=== PATIENT | female | born 1980 | race Caucasian/White ===

== ENCOUNTER → 2016-05-01 | Outpatient (CLI) | payer OTHER ==
--- NOTE | 2016-05-04 11:03 | MM ---
Reason for exam: screening (asymptomatic). Last mammogram was performed 5 years and 5 months ago. History: Patient had first child at age 29. Family history of breast cancer in mother at age 50. Took hormonal contraceptives for 2 years beginning at age 29. Physical Findings: A clinical breast exam by your physician is recommended on an annual basis and results should be correlated with mammographic findings. MG 3D Screening Mammo W/Cad Bilateral CC and MLO view(s) were taken. Prior study comparison: December 03, 2010, bilateral digital screening mammo w/CAD. There are scattered fibroglandular densities. There is no discrete abnormality. ASSESSMENT: Negative, BI-RAD 1 RECOMMENDATION: Routine screening mammogram of both breasts in 1 year.
== END | disposition home or self-care (01) ==
LOC: RADMAMWWP 16:53
PROVIDERS: ATTEND Family Medicine
DX: Z12.31 Encounter for screening mammogram for malignant neoplasm of breast (principal); Z80.3 Family history of malignant neoplasm of breast
CPT/HCPCS: 77063; G0202

== ENCOUNTER → 2017-06-02 | Outpatient (CLI) | payer OTHER ==
--- NOTE | 2017-06-03 14:23 | MM ---
Reason for exam: screening (asymptomatic). Last mammogram was performed 1 year and 1 month ago. History: Patient had first child at age 29. Family history of breast cancer in mother at age 50. Took hormonal contraceptives for 2 years beginning at age 29. Physical Findings: A clinical breast exam by your physician is recommended on an annual basis and results should be correlated with mammographic findings. MG Screening Mammo w CAD Bilateral CC, MLO, and XCCL view(s) were taken. Prior study comparison: May 01, 2016, bilateral MG 3d screening mammo w/cad. December 03, 2010, bilateral digital screening mammo w/CAD. There are scattered fibroglandular densities. No significant changes when compared with prior studies. ASSESSMENT: Benign, BI-RAD 2 RECOMMENDATION: Routine screening mammogram of both breasts in 1 year.
== END | disposition home or self-care (01) ==
LOC: RADMAMWWP 08:58
PROVIDERS: ATTEND Family Medicine
DX: Z12.31 Encounter for screening mammogram for malignant neoplasm of breast (principal)
CPT/HCPCS: 77067

== ENCOUNTER 2018-05-26 23:00 | Emergency (ER) | payer OTHER ==
[2018-05-26 23:06] VITALS: BP 170/91; PULSE 77; RESP 18; TEMP 98.8
[2018-05-26] MEDS ORDERED: KETOROLAC 30 MG/ML 1 ML VIAL IM STA (23:40)
[2018-05-26] MEDS ORDERED: DIAZEPAM 5 MG TAB PO STA (23:41)
--- NOTE | 2018-05-26 23:58 | ED ---
Back Pain HPI - General Source: patient Limitations: no limitations <Earnestine Contreras - Last Filed: 05/27/18 14:51> <Sharon Francisco - Last Filed: 05/27/18 21:51> - General Chief Complaint: Back Pain/Injury Stated Complaint: Strained Muscles Lft Side Time Seen by Provider: 05/26/18 23:21 - History of Present Illness Initial Comments: 38-year-old female patient presented to the emergency department today for evaluation of left-sided back spasms. Patient states that she has had symptoms for the last 2-3 days. Patient states symptoms did worsen today. 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 She states that the symptoms worsen when she twists her torso or attempts to lie down. She denies any radiation of the pain into her abdomen. She denies any hematuria or dysuria, but states she is urinating more frequently. She denies any fever or chills. States that she has had occasional back pain in the past. She denies any radiation of the pain down her legs. Denies any numbness or tingling to her lower trauma is. Denies any saddle anesthesia or loss of bowel or bladder control. Patient denies any recent rash, shortness breath, chest pain, diarrhea, constipation, back pain, dizziness, weakness, headache, visual changes, or any other complaints. (Earnestine Contreras) - Related Data Home Medications Medication Instructions Recorded Confirmed Hydrochlorothiazide [Hydrodiuril] 25 mg PO DAILY 05/26/18 05/26/18 Sertraline [Zoloft] 50 mg PO DAILY 05/26/18 05/26/18 metFORMIN HCL ER [Glucophage Xr] 500 mg PO AC-BID 05/26/18 05/26/18 Previous Rx's Medication Instructions Recorded Cyclobenzaprine [Flexeril] 10 mg PO TID #15 tab 05/27/18 Ibuprofen [Motrin] 600 mg PO Q8HR PRN #30 tab 05/27/18 Allergies Allergy/AdvReac Type Severity Reaction Status Date / Time codeine AdvReac Nausea & Verified 05/26/18 23:41 Vomiting & Diarrhea Review of Systems ROS Other: All systems not noted in ROS Statement are negative. <Earnestine Contreras - Last Filed: 05/27/18 14:51> ROS Other: All systems not noted in ROS Statement are negative. <Sharon Francisco P - Last Filed: 05/27/18 21:51> ROS Statement: Those systems with pertinent positive or pertinent negative responses have been documented in the HPI. Past Medical History Past Medical History: No Reported History History of Any Multi-Drug Resistant Organisms: None Reported Past Surgical History: Cholecystectomy Past Psychological History: No Psychological Hx Reported Smoking Status: Never smoker Past Alcohol Use History: None Reported Past Drug Use History: None Reported <Earnestine Contreras M - Last Filed: 05/27/18 14:51> General Exam Limitations: no limitations General appearance: alert, in no apparent distress, other (Physical well- developed, well-nourished adult female patient in no acute distress. Vital signs upon presentation are temperature 98.8F. Pulse 77, respirations 18, blood pressure 170/91, pulse ox 100% on room air.) Eye exam: Present: normal appearance, PERRL, EOMI. Absent: scleral icterus, conjunctival injection, periorbital swelling Respiratory exam: Present: normal lung sounds bilaterally. Absent: respiratory distress, wheezes, rales, rhonchi, stridor Cardiovascular Exam: Present: regular rate, normal rhythm, normal heart sounds. Absent: systolic murmur, diastolic murmur, rubs, gallop, clicks GI/Abdominal exam: Present: soft, normal bowel sounds. Absent: distended, te nderness, guarding, rebound, rigid Extremities exam: Present: normal inspection, full ROM, normal capillary refill, other (Skin to the lower extremities is pink, warm, dry. Cap refills less than 3 seconds. Pedal pulses are 2+ and equal bilaterally.). Absent: tenderness, pedal edema, joint swelling, calf tenderness Back exam: Present: normal inspection, other (Patient has left low back tenderness). Absent: vertebral tenderness Neurological exam: Present: alert, oriented X3, CN II-XII intact Psychiatric exam: Present: normal affect, normal mood Skin exam: Present: warm, dry, intact, normal color. Absent: rash <Earnestine Contreras M - Last Filed: 05/27/18 14:51> Course Vital Signs 05/26/18 23:04 Temperature 98.8 F Pulse Rate 77 Respiratory 18 Rate Blood Pressure 170/91 O2 Sat by Pulse 100 Oximetry Medical Decision Making <Earnestine Contreras - Last Filed: 05/27/18 14:51> <Sharon Francisco - Last Filed: 05/27/18 21:51> - Medical Decision Making 38-year-old female patient presents to the emergency department today for evaluation of left-sided back spasms. Physical examination did reveal some left low back tenderness. She is neurovascularly intact. Strength in the lower extremities is 5/5. No concerning symptoms or cauda equina. Given the location of pain over the kidney or did want to perform urinalysis. Patient refused this test and asked to be discharged. She'll be given muscle relaxer for home. She is instructed take anti-inflammatory medications as directed. She is in structed follow up with her primary care physician for recheck in 1-2 days. Return parameters were discussed in detail. She verbalizes understanding and agrees with this plan. (Earnestine Contreras) I was available for consultation in the emergency department. The history and physical exam were done by the midlevel provider. I was consulted for this patient's care. I reviewed the case with the midlevel provider and based on their presentation of the patient, I agree with the assessment, medical decision making and plan of care as documented. (Sharon Francisco) Disposition Is patient prescribed a controlled substance at d/c from ED?: No Time of Disposition: 00:28 <Earnestine Contreras - Last Filed: 05/27/18 14:51> <Sharon Francisco - Last Filed: 05/27/18 21:51> Clinical Impression: Muscle spasm of back Disposition: HOME SELF-CARE Condition: Good Instructions (If sedation given, give patient instructions): Muscle Spasm (ED) Additional Instructions: Take medications as directed. Apply warm moist heat to the painful areas. Perform gentle range of motion exercises. Follow-up through primary care physician for recheck in 1-2 days. Return to the emergency department immediately for any new, worsening, or concerning symptoms. Prescriptions: Cyclobenzaprine [Flexeril] 10 mg PO TID #15 tab Ibuprofen [Motrin] 600 mg PO Q8HR PRN #30 tab PRN Reason: Pain Referrals: Nadia Blackburn III, MD [Primary Care Provider] - 1-2 days
== END 2018-05-27 00:50 | disposition home or self-care (01) ==
LOC: EC 23:00
DX: M62.830 Muscle spasm of back (principal); Z53.29 Procedure and treatment not carried out because of patient's decision for other reasons; Z79.84 Long term (current) use of oral hypoglycemic drugs; Z79.899 Other long term (current) drug therapy; Z88.5 Allergy status to narcotic agent
CPT/HCPCS: 99282

== ENCOUNTER → 2018-10-14 | Outpatient (CLI) | payer OTHER ==
--- NOTE | 2018-10-14 15:43 | US ---
EXAMINATION TYPE: US thyroid st tissue head/neck DATE OF EXAM: 10/14/2018 COMPARISON: NONE CLINICAL HISTORY: 38-year-old female R13.10 Dysphagia. TECHNIQUE: Multiple sonographic images of the thyroid gland are obtained. FINDINGS: GLAND SIZE: Right Lobe: 4.9 x 1.3 x 1.6 cm Overall Parenchyma: heterogenous Left Lobe: 5.0 x 1.5 x 1.7 cm Overall Parenchyma: heterogeneous Isthmus Thickness: 0.4 cm NODULES RIGHT: # of nodules measured on right: 0 LEFT: # of nodules measured on left: 0 ISTHMUS: # of nodules measured in the isthmus: 0 Bilateral neck scanned, no evidence of lymphadenopathy. Gland is heterogeneous bilaterally. IMPRESSION: Heterogeneous glandular parenchyma. Borderline thyromegaly, possible goiter. No discrete nodules.
--- NOTE | 2018-10-19 09:06 | MM ---
Reason for exam: screening (asymptomatic). Last mammogram was performed 1 year and 4 months ago. History: Patient had first child at age 29. Family history of breast cancer in mother at age 50. Took hormonal contraceptives for 2 years beginning at age 29. Physical Findings: A clinical breast exam by your physician is recommended on an annual basis and results should be correlated with mammographic findings. MG Screening Mammo w CAD Bilateral CC and MLO view(s) were taken. Prior study comparison: June 02, 2017, bilateral MG screening mammo w CAD. May 01, 2016, bilateral MG 3d screening mammo w/cad. The breast tissue is almost entirely fat. No significant changes when compared with prior studies. ASSESSMENT: Negative, BI-RAD 1 RECOMMENDATION: Routine screening mammogram of both breasts in 1 year.
== END | disposition home or self-care (01) ==
LOC: RADMAMWWP 13:58
PROVIDERS: ATTEND Family Medicine
DX: Z12.31 Encounter for screening mammogram for malignant neoplasm of breast (principal); R93.89 Abnormal findings on diagnostic imaging of other specified body structures; R13.10 Dysphagia, unspecified
CPT/HCPCS: 76536; 77067

== ENCOUNTER → 2019-04-05 | Outpatient (CLI) | payer OTHER ==
--- NOTE | 2019-04-06 03:55 | US ---
EXAMINATION TYPE: US pelvis complete transvag DATE OF EXAM: 04/05/2019 COMPARISON: US 2014 CLINICAL HISTORY: 39-year-old female N94.6 dysmenorrhea, N94.10 dyspareunia,R10.30 Lower abd pain. In termittent pelvic pain, abnormal cycles, 4, para 2, miscarriage 2. TECHNIQUE: Transabdominal sonographic images of the pelvis were acquired. Transvaginal sonographic images were medically necessary to better assess the following anatomy: ovaries and endometrium. Date of LMP: 4 weeks ago FINDINGS: EXAM MEASUREMENTS: Uterus: 9.0 x 5.4 x 4.8 cm Endometrial Stripe: 1.4 cm Right Ovary: 3.3 x 2.0 x 2.3 cm Left Ovary: not seen 1. Uterus: anteverted, mildly heterogeneous myometrium, multiple nabothian cysts 2. Endometrium: borderline thickened at 1.4cm 3. Right Ovary: multiple follicles with largest measuring 1.1cm 4. Left Ovary: not seen 5. Bilateral Adnexa: wnl 6. Posterior cul-de-sac: wnl IMPRESSION: 1. Small cervical nabothian cysts. 2. Endometrial stripe thickened at 1.4 cm. This should correspond to the secretory phase of the menst rual cycle. 3. Normal follicular changes in the right ovary. 4. The left ovary could not be visualized.
== END | disposition home or self-care (01) ==
LOC: RADUSWWP 16:18
PROVIDERS: ATTEND Nurse Practitioner Family
DX: N88.8 Other specified noninflammatory disorders of cervix uteri (principal)
CPT/HCPCS: 76830; 76856

== ENCOUNTER → 2019-10-17 | Outpatient (CLI) | payer OTHER ==
--- NOTE | 2019-10-18 10:11 | MM ---
Reason for exam: screening (asymptomatic). Last mammogram was performed 1 year ago. History: Patient had first child at age 29. Family history of breast cancer in mother at age 50. Taking hormonal contraceptives for 2 years beginning at age 29. Physical Findings: A clinical breast exam by your physician is recommended on an annual basis and results should be correlated with mammographic findings. MG Screening Mammo w CAD Bilateral CC and MLO view(s) were taken. Prior study comparison: October 14, 2018, bilateral MG screening mammo w CAD. June 02, 2017, bilateral MG screening mammo w CAD. There are scattered fibroglandular densities. There is no discrete abnormality. No significant changes when compared with prior studies. ASSESSMENT: Negative, BI-RAD 1 RECOMMENDATION: Routine screening mammogram of both breasts in 1 year.
== END | disposition home or self-care (01) ==
LOC: RADMAMWWP 09:52
PROVIDERS: ATTEND Family Medicine
DX: Z12.31 Encounter for screening mammogram for malignant neoplasm of breast (principal)
CPT/HCPCS: 77067

== ENCOUNTER 2020-08-06 06:56 | Day surgery (SDC) | payer OTHER ==
[2020-08-01 10:45] VITALS: BMI 38.2
[~2020-08-06 06:56] MED LIST: LACTATED RINGERS 1,000 ML IV SCH
[2020-08-06] MEDS ORDERED: LIDOCAINE 1% (10MG/ML) FOR IV START INTRADERMA ONE (07:20)
[2020-08-06 07:31] VITALS: RESP 16; TEMP 97.2
[2020-08-06 07:32] LABS: Glucose,Whole Blood 133 mg/dL (75-99)
[2020-08-06] MEDS ORDERED: PROPOFOL 10 MG/ML 20 ML VIAL IV ONE (07:40)
--- NOTE | 2020-08-06 08:04 | P.PCN ---
Date of Procedure: 08/06/20 Description of Procedure: BRIEF HISTORY: Patient is a 40-year-old female presenting for outpatient colonoscopy for evaluation of iron deficiency anemia. Previously the patient had reported menorrhagia but after IUD placement this is resolved. She continues to have an iron deficiency anemia. She denies any signs or symptoms of GI bleeding. No family history of colon cancer. PROCEDURE PERFORMED: Colonoscopy. PREOPERATIVE DIAGNOSIS: Iron deficiency anemia, no prior colonoscopy. ESTIMATED BLOOD LOSS: Minimal. IV sedation per Anesthesia. PROCEDURE: After informed consent was obtained, the patient, was brought into the endoscopy unit. IV sedation was administered by Anesthesia under continuous monitoring. Digital rectal examination was normal. Initially the Olympus CF-190 flexible video colonoscope was then inserted in the rectum, gradually advanced into the cecum without any difficulty. Careful examination was performed as the scope was gradually being withdrawn. Ileocecal valve and the appendiceal orifice were visualized and appeared normal. Prep was excellent. Mucosa of the cecum, ascending colon, transverse colon, descending colon, sigmoid colon, and rectum appeared normal. Retroflexion was performed in the rectum and no lesions were seen, With low-grade internal hemorrhoids seen. The patient tolerated the procedure well. IMPRESSION: Normal-appearing colon from rectum to cecum and normal-appearing terminal ileum. RECOMMENDATIONS: Findings of this examination were discussed with the patient and her family. Okay to resume diet. Okay to resume medications. Continue medical management. Follow-up with primary care physician as previously scheduled.
[2020-08-06 08:15] VITALS: BP 108/73; PULSE 73
== END 2020-08-06 08:58 | disposition home or self-care (01) ==
LOC: ORWHC2ENDO 06:56
PROVIDERS: ATTEND Internal Medicine
DX: K64.8 Other hemorrhoids (principal); D50.9 Iron deficiency anemia, unspecified; Z90.49 Acquired absence of other specified parts of digestive tract; E78.5 Hyperlipidemia, unspecified; E11.9 Type 2 diabetes mellitus without complications; F32.9 Major depressive disorder, single episode, unspecified; F41.9 Anxiety disorder, unspecified; K21.9 Gastro-esophageal reflux disease without esophagitis; Z79.84 Long term (current) use of oral hypoglycemic drugs; Z79.1 Long term (current) use of non-steroidal anti-inflammatories (NSAID); Z79.899 Other long term (current) drug therapy; Z88.5 Allergy status to narcotic agent
CPT/HCPCS: 81025; 45378; J2704

== ENCOUNTER → 2021-10-22 | Outpatient (CLI) | payer OTHER ==
--- NOTE | 2021-10-24 11:27 | MM ---
Reason for Exam: Screening (asymptomatic). Last mammogram was performed 2 year(s) and 0 month(s) ago. Patient History: Menarche at age 11. First Full-Term at age 29. Late child-bearing (after 30). Currently using Hormonal Contraceptives, beginning at age 29 for 2 years. Mother had breast cancer, age 50. Risk Values: Mirna 5 year model risk: 1.4%. NCI Lifetime model risk: 18.8%. Prior Study Comparison: 06/02/2017 Bilateral Screening Mammogram, [facility]. 10/14/2018 Bilateral Screening Mammogram, [facility]. 10/17/2019 Bilateral Screening Mammogram, [facility]. Tissue Density: There are scattered fibroglandular densities. Findings: Analyzed By CAD. No discrete abnormality. Overall Assessment: Negative, BI-RAD 1 Management: Screening Mammogram of both breasts in 1 year. A clinical breast exam by your physician is recommended on an annual basis and results should be correlated with mammographic findings. Electronically signed and approved by: Dash Canchola M.D. Radiologist
== END | disposition home or self-care (01) ==
LOC: RADMAMWWP 14:55
PROVIDERS: ATTEND Family Medicine
DX: Z12.31 Encounter for screening mammogram for malignant neoplasm of breast (principal); Z80.3 Family history of malignant neoplasm of breast
CPT/HCPCS: 77067

== ENCOUNTER → 2022-12-25 | Outpatient (CLI) | payer OTHER ==
--- NOTE | 2022-12-25 08:48 | MM ---
Reason for Exam: Screening (asymptomatic). Last mammogram was performed 1 year(s) and 2 month(s) ago. Patient History: Menarche at age 11. First Full-Term at age 29. Late child-bearing (after 30). Currently using Hormonal Contraceptives, beginning at age 29 for 2 years. Mother had breast cancer, age 50. Risk Values: Mirna 5 year model risk: 1.6%. NCI Lifetime model risk: 18.6%. Prior Study Comparison: 10/14/2018 Bilateral Screening Mammogram, [facility]. 10/17/2019 Bilateral Screening Mammogram, [facility]. 10/22/2021 Bilateral MG screening mammo w CAD, [facility]. Tissue Density: There are scattered fibroglandular densities. Findings: Analyzed By CAD. There is no suspicious group of microcalcifications or new suspicious mass in either breast. Overall Assessment: Negative, BI-RAD 1 Management: Screening Mammogram of both breasts in 1 year. A clinical breast exam by your physician is recommended on an annual basis and results should be correlated with mammographic findings. Note on Mirna scores and lifetime risk: 1. A Mirna score greater than 3% is considered moderate risk. If this is the case, consider specialist referral to assess eligibility for a risk reducing agent. If overall lifetime risk for the development of breast cancer is 20% or higher, the patient may qualify for future screening with alternating mammogram and breast MRI. Electronically signed and approved by: Morgan Alba D.O.
== END | disposition home or self-care (01) ==
LOC: RADMAMWWP 08:17
PROVIDERS: ATTEND Family Medicine
DX: Z12.31 Encounter for screening mammogram for malignant neoplasm of breast (principal); R92.323 Mammographic fibroglandular density, bilateral breasts; Z80.3 Family history of malignant neoplasm of breast
CPT/HCPCS: 77067

== ENCOUNTER → 2023-12-27 | Outpatient (CLI) | payer BC, OTHER ==
--- NOTE | 2024-01-03 08:53 | MM ---
Reason for Exam: Screening (asymptomatic). Last screening mammogram was performed 12 month(s) ago. Patient History: Menarche at age 11. First Full-Term at age 29. Late child-bearing (after 30). Currently using Hormonal Contraceptives, beginning at age 29 for 2 years. Mother had breast cancer, age 50. Risk Values: Mirna 5 year model risk: 1.7%. NCI Lifetime model risk: 18.5%. Prior Study Comparison: 10/17/2019 Bilateral Screening Mammogram, [facility]. 10/22/2021 Bilateral MG screening mammo w CAD, [facility]. 12/25/2022 Bilateral MG screening mammo w CAD, [facility]. Tissue Density: The breasts are almost entirely fatty. Findings: Analyzed By CAD. Right breast: There is no suspicious group of microcalcifications or new suspicious mass. Left breast: There is no suspicious group of microcalcifications or new suspicious mass. Overall Assessment: Negative, BI-RAD 1 Management: Screening Mammogram of both breasts in [address] [facility] will attempt to contact patient to return for supplemental views and ultrasound if indicated. Patient should continue monthly self-breast exams. A clinical breast exam by your physician is recommended on an annual basis. This exam should not preclude additional follow-up of suspicious palpable abnormalities. Note on Mirna scores and lifetime risk: 1. A Mirna score greater than 3% is considered moderate risk. If this is the case, consider specialist referral to assess eligibility for a risk reducing agent. 2. If overall lifetime risk for the development of breast cancer is 20% or higher, the patient may qualify for future screening with alternating mammogram and breast MRI. [facility], , 01/03/2024 8:50 AM. Electronically signed and approved by: Pk Hatch DO
== END | disposition home or self-care (01) ==
LOC: RADMAMWWP 15:24
PROVIDERS: ATTEND Family Medicine
DX: Z12.31 Encounter for screening mammogram for malignant neoplasm of breast (principal); Z80.3 Family history of malignant neoplasm of breast
CPT/HCPCS: 77067

== ENCOUNTER 2024-01-15 09:05 | Emergency (ER) | payer OTHER, BC ==
[2024-01-15 09:22] VITALS: TEMP 99
--- NOTE | 2024-01-15 09:46 | ED ---
Lower Extremity Injury HPI - General Chief Complaint: Extremity Injury, Lower Stated Complaint: L Leg Injury Time Seen by Provider: 01/15/24 09:22 Source: patient, RN notes reviewed Mode of arrival: ambulatory Limitations: no limitations - History of Present Illness Initial Comments: This is a 43-year-old female who presents to the emergency department for left leg pain and swelling. 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 She has since had increased pain and swelling. She went to urgent care this morning and was advised to come here for an ultrasound to rule out a DVT. Pain is controlled with [id number] medication. Denies any history of DVTs, chest pain, or shortness of breath. - Related Data Home Medications Medication Instructions Recorded Confirmed Sertraline [Zoloft] 50 mg PO DAILY 05/26/18 08/01/20 hydroCHLOROthiazide [Hydrodiuril] 25 mg PO DAILY 05/26/18 08/01/20 metFORMIN HCL ER [Glucophage Xr] 1,000 mg PO HS 05/26/18 08/01/20 Ascorbic Acid [Vitamin C] 500 mg PO DAILY 08/01/20 08/01/20 Atorvastatin [Lipitor] 20 mg PO DAILY 08/01/20 08/01/20 Ferrous Sulfate [Feosol] 325 mg PO DAILY 08/01/20 08/01/20 Multivitamins, Thera [Multivitamin 1 tab PO DAILY 08/01/20 08/01/20 (formulary)] Omeprazole 20 mg PO DAILY 08/01/20 08/01/20 Previous Rx's Medication Instructions Recorded Cyclobenzaprine [Flexeril] 10 mg PO TID #15 tab 05/27/18 Ibuprofen [Motrin] 600 mg PO Q8HR PRN #30 tab 05/27/18 Allergies Allergy/AdvReac Type Severity Reaction Status Date / Time codeine AdvReac Nausea & Verified 01/15/24 09:21 Vomiting & Diarrhea Review of Systems ROS Statement: Those systems with pertinent positive or pertinent negative responses have been documented in the HPI. ROS Other: All systems not noted in ROS Statement are negative. Past Medical History Past Medical History: Diabetes Mellitus, GERD/Reflux, Hyperlipidemia, Hyp ertension Additional Past Medical History / Comment(s): anemia History of Any Multi-Drug Resistant Organisms: None Reported Past Surgical History: Cholecystectomy Past Anesthesia/Blood Transfusion Reactions: No Reported Reaction, Motion Sickness Past Psychological History: Anxiety, Depression Smoking Status: Never smoker Past Alcohol Use History: None Reported Past Drug Use History: None Reported General Exam Limitations: no limitations General appearance: alert, in no apparent distress Head exam: Present: atraumatic, normocephalic, normal inspection Respiratory exam: Present: normal lung sounds bilaterally. Absent: respiratory distress, wheezes, rales, rhonchi, stridor Cardiovascular Exam: Present: regular rate, normal rhythm, normal heart sounds. Absent: systolic murmur, diastolic murmur, rubs, gallop, clicks Extremities exam: Present: other (Swelling and tenderness to the left calf. No erythema or warmth. 2+ DP and PT pulses) Neurological exam: Present: alert, oriented X3, CN II-XII intact Psychiatric exam: Present: normal affect, normal mood Skin exam: Present: warm, dry, intact, normal color. Absent: rash Course Vital Signs 01/15/24 01/15/24 09:17 12:33 Temperature 99.0 F Pulse Rate 82 76 Respiratory 20 18 Rate Blood Pressure 119/79 121/81 O2 Sat by Pulse 100 97 Oximetry Medical Decision Making - Medical Decision Making This is a 43-year-old female who presents to the emergency department for left leg pain and swelling. Was pt. sent in by a medical professional or institution? @ -No Did you speak to anyone other than the patient for history? @ -No Did you review nursing and triage notes? @ -Yes, and I agree, it is accurate with regards to the patient's symptoms. Were old charts reviewed? @ -No Differential Diagnosis? @ -Differential Musculoskeletal Muscular strain, contusion, ligament sprain, fracture, arthritis, septic arthritis, bursitis, cellulitis, muscle spasm, nerve compression, DVT, arterial occlusion, herpes zoster, electrolyte abnormality, tumor.... This is not meant to be in all inclusive list EKG interpreted by me (3pts min.)? @ -Not obtained X-rays interpreted by me (1pt min.)? @ -X-ray of the left tib-fib obtained. My interpretation identifies no acute fractures. CT interpreted by me (1pt min.)? @ -Not obtained U/S interpreted by me (1pt. min.)? @ -Duplex ultrasound of the left lower extremity obtained. My interpretation identifies no evidence of a DVT. What testing was considered but not performed? (CT, X-rays, U/S, labs)? Why? @ -None What meds were considered but not given? Why? @ -None Did you discuss the management of the patient with other professionals? @ -No Did you reconcile home meds? @ -No Was smoking cessation discussed for >3mins.? @ -No Was critical care preformed (if so, how long)? @ -No Were there social determinants of health that impacted care today? How? (Homelessness, low income, unemployed, alcoholism, drug addiction, transportation, low edu. Level, literacy, decrease access to med. care, retirement, rehab)? @ -No Was there de-escalation of care discussed even if they declined? (Discuss DNR or withdrawal of care, Hospice)? @ -No What co-morbidities impacted this encounter? (DM, HTN, Smoking, COPD, CAD, Cancer, CVA, Hep., AIDS, mental health diagnosis, sleep apnea, morbid obesity)? @ -None Was patient admitted / discharged? @ -Discharged. X-ray of the left tib-fib demonstrates a radiopaque foreign body in the soft tissues. This was reviewed with the patient. Denies any recent injuries. There were no signs of trauma or external changes visualized on the leg. Advised that the cause of this is not entirely clear, but is nothing we need to attempt removal at currently. She can follow-up with her primary care provider for reevaluation. Duplex ultrasound of the left lower extremity reveals no evidence of a DVT. Advised ibuprofen and Tylenol as needed for pain relief as well as elevation of the leg. Patient discharged home in stable condition. Case discussed with ED attending Dr. Mena. Return precautions reviewed in depth, the patient is instructed to return to the emergency department with any new, worsening, or concerning symptoms. Patient verbalized understanding. Undiagnosed new problem with uncertain prognosis? @ -None Drug Therapy requiring intensive monitoring for toxicity (Heparin, Nitro, Insulin, Cardizem)? @ -None Were any procedures done? @ -None Diagnosis/symptom? @ -Left leg pain and swelling Acute, or Chronic, or Acute on Chronic? @ -Acute Uncomplicated (without systemic symptoms) or Complicated (systemic symptoms)? @ -Uncomplicated Side effects of treatment? @ -None Exacerbation, Progression, or Severe Exacerbation] @ -Not applicable Poses a threat to life or bodily function? @ -No - Radiology Data Radiology results: report reviewed, image reviewed Disposition Clinical Impression: Pain and swelling of left lower leg Disposition: HOME SELF-CARE Instructions (If sedation given, give patient instructions): Leg Pain (ED) Additional Instructions: Return to the emergency department with any new, worsening, or concerning symptoms. Alternate with ibuprofen and Tylenol as needed for pain relief. Follow up with your primary care provider in 1-2 days. Is patient prescribed a controlled substance at d/c from ED?: No Referrals: Beny Cuadra MD [Primary Care Provider] - 1-2 days Time of Disposition: 12:19
--- NOTE | 2024-01-15 09:54 | XR ---
Left tibia and fibula HISTORY: Pain. COMPARISON: None. TECHNIQUE: 4 views left tibia and fibula were obtained. FINDINGS: Left tibia and fibula are intact without fracture, focal intraosseous abnormality, cortical destructi on or periosteal reaction. There is a cluster of small radiopaque foreign body in the soft tissues of the distal calf of indeter minate etiology. IMPRESSION: 1. No abnormality of the left tibia and fibula. 2. Radiopaque foreign body in the calf soft tissues. [facility], , 01/15/2024 9:51 AM
--- NOTE | 2024-01-15 12:06 | US ---
EXAMINATION TYPE: US venous doppler duplex LE LT DATE OF EXAM: 01/15/2024 11:12 AM COMPARISON: NONE CLINICAL INDICATION: Female, 43 years old with history of Pain and swelling; , TECHNIQUE: The lower extremity deep venous system is examined utilizing real time linear array sonog racheal with graded compression, color doppler sonography, and spectral doppler. SIDE PERFORMED: Left FINDINGS: VESSELS IMAGED: Common Femoral Vein Deep Femoral Vein Greater Saphenous Vein * Femoral Vein Popliteal Vein Small Saphenous Vein * Proximal Calf Veins (* superficial vessels) Left Leg: Appears negative for DVT IMPRESSION: No ultrasound evidence for deep venous thrombosis. [facility], , 01/15/2024 12:04 PM
[2024-01-15 12:34] VITALS: BP 121/81; PULSE 76; RESP 18
== END 2024-01-15 12:34 | disposition home or self-care (01) ==
LOC: EC 09:05
DX: M79.662 Pain in left lower leg (principal); Z88.5 Allergy status to narcotic agent
CPT/HCPCS: 99284